=== PATIENT | male | born 1975 | race Hispanic/Latino ===

== ENCOUNTER 2021-05-11 08:56 | Observation (INO) | payer BC ==
[~2021-05-11] VITALS: Ht 180.3 cm; Wt 98.9 kg
[~2021-05-11 08:56] MED LIST: CYCLOBENZAPRINE10 MG PO; MOBIC7.5 MG PO; ULTRAM 50MG50 MG PO
[2021-05-11] MEDS ORDERED: SODIUM CHLORIDE 0.9% 50ML 100 ML ONE (09:41)
[2021-05-11] MEDS ORDERED: IBUPROFEN400 MG PO (09:46)
[2021-05-11] MEDS ORDERED: Vancomycin IV 1 GM VIAL ONE (10:55)
[2021-05-11] MEDS ORDERED: LIDOCAINE 2%/ EPINEPHRINE 20ML MDV ONE (10:55)
[2021-05-11] MEDS ORDERED: THROMBIN FOR SOLN 5,000 UNIT VIAL ONE (10:55)
[2021-05-11] MEDS ORDERED: ROCURONIUM BROMIDE 10 MG/ML 5ML VIAL IV ONE (12:20)
[2021-05-11] MEDS ORDERED: SEVOFLURANE INHAL SOLN 250 ML PEN BTL ONE (12:20)
[2021-05-11] MEDS ORDERED: DEXAMETHASONE SOD PHOS INJ 4 MG/ML SDV ONE (12:20)
[2021-05-11] MEDS ORDERED: LIDOCAINE HCL 2% LOCAL INJ 5 ML SDV VIAL INJ ONE (12:20)
[2021-05-11] MEDS ORDERED: POVIDONE IODINE 0.05% 0.05 % ML PO ONE (12:20)
[2021-05-11] MEDS ORDERED: ONDANSETRON HCL INJ 2MG/ML 2ML 2 MG/ML VIAL ONE (12:20)
[2021-05-11] MEDS ORDERED: PROPOFOL IV EMULSION 10 MG/ML 20 ML VIAL ONE (12:20)
[2021-05-11] MEDS ORDERED: FENTANYL CITRATE/PF 100MCG/2 ML INJ ONE (12:54)
[2021-05-11] MEDS ORDERED: MIDAZOLAM HCL 2 MG/2 ML VIAL ONE (12:54)
[2021-05-11] MEDS ORDERED: HYDROMORPHONE 2MG/ML 2 MG/ML ML IV PRN (13:30)
[2021-05-11] MEDS ORDERED: OXYCODONE/ACETAMINOPHEN 5-325 1 EACH TABLET PO PRN (13:30)
[2021-05-11] MEDS ORDERED: PROMETHAZINE HCL (IM) 25 MG/ML VIAL IM PRN (13:30)
[2021-05-11] MEDS ORDERED: ACETAMINOPHEN 325 MG TAB PO PRN (13:30)
[2021-05-11] MEDS ORDERED: MAGNESIUM/ALUMINUM/SIMETHICONE 30 ML UDC PO PRN (13:30)
[2021-05-11] MEDS ORDERED: CARISOPRODOL 350 MG TAB PO PRN (13:30)
[2021-05-11] MEDS ORDERED: MORPHINE SULFATE 5 MG/ML VIAL IM PRN (13:30)
[2021-05-11] MEDS ORDERED: CEPACOL SORE THROAT LOZENGES PO PRN (13:30)
[2021-05-11] MEDS ORDERED: HYDROCODON-ACE1 EA12 PO (13:34)
[2021-05-11 16:33] VITALS: BP 142/105
[2021-05-11] MEDS ORDERED: SODIUM CHLORIDE 0.9% 250ML 250 ML ONE (17:10)
[2021-05-11 17:53] VITALS: BP 142/105
[2021-05-11] MEDS: ONDANSETRON HCL INJ 2MG/ML 2ML 2 MG/ML VIAL IV PRN (17:57)
[2021-05-11] MEDS: Vancomycin IV 1 GM in SODIUM CHLORIDE 0.9% 250ML 250 ML IV SCH (18:00)
[2021-05-11] MEDS: HYDRALAZINE HCL 10 MG TAB PO PRN (20:16)
[2021-05-11 20:24] VITALS: BP 167/98
[2021-05-11] MEDS ORDERED: ZOLPIDEM TARTRATE 5 MG TAB PO PRN (21:00)
[2021-05-11 21:10] VITALS: BP 167/98
[2021-05-11] MEDS: LACTATED RINGER'S 1,000 ML IV SCH (22:32)
[2021-05-12] VITALS: BP 160/100
[2021-05-12 04:00] VITALS: BP 155/96
[2021-05-12] MEDS: LACTATED RINGER'S 1,000 ML IV SCH (05:43)
[2021-05-12] MEDS: ONDANSETRON HCL INJ 2MG/ML 2ML 2 MG/ML VIAL IV PRN (05:43)
[2021-05-12] MEDS: Vancomycin IV 1 GM in SODIUM CHLORIDE 0.9% 250ML 250 ML IV SCH (05:43)
[2021-05-12] MEDS: HYDRALAZINE HCL 10 MG TAB PO PRN (05:44)
[2021-05-12 08:25] VITALS: BP 148/99
[2021-05-12 08:29] VITALS: BP 148/99
== END 2021-05-12 10:30 | disposition home or self-care (01) ==
LOC: OR 08:56 → PACU V 13:31 → MED/SURG 15:02
PROVIDERS: ADMIT Neurological Surgery; ATTEND Neurological Surgery
DX: M50.120 Mid-cervical disc disorder, unspecified level (principal); Z20.822 Contact with and (suspected) exposure to COVID-19; Z01.818 Encounter for other preprocedural examination; F17.200 Nicotine dependence, unspecified, uncomplicated; G89.29 Other chronic pain; I10 Essential (primary) hypertension
CPT/HCPCS: 20931; 22551; 22552; 22845; 76000; 86850; 86900; 88304; 96360; C1763; G0378 ×2; J0690; J1100; J1170 ×2; J2001 ×2; J2250; J2405 ×2; J2704; J3010; J3370 ×2; J7050 ×2; J7121 ×2; U0002

== ENCOUNTER → 2021-06-08 | Outpatient (CLI) | payer BC ==
[~2021-06-08] MED LIST changes: +HYDROCODON-ACE1 EA12 PO; +IBUPROFEN400 MG PO
== END ==
LOC: RAD 12:45
PROVIDERS: ATTEND Neurological Surgery
DX: M50.20 Other cervical disc displacement, unspecified cervical region (principal); M43.22 Fusion of spine, cervical region
CPT/HCPCS: 72052